=== PATIENT | male | born 1965 | race Caucasian/White ===

== ENCOUNTER 2017-10-31 08:53 | Emergency (ER) | payer SELFPAY ==
[~2017-10-31] VITALS: Ht 180.3 cm; Wt 93.1 kg
[~2017-10-31 08:53] MED LIST: NORCO 5/3251 TABLET PO
[2017-10-31 10:37] LABS: BASOPHIL (%) 0.1 % (0-1); EOSINOPHIL (%) 0 % (0-5); HEMATOCRIT 37.7 % (38.0-50.0); HEMOGLOBIN 13.2 G/DL (12.5-16.6); IMMATURE GRANULOCYTE (%) 1.1 % (0.0-0.7); LYMPHOCYTE (%) 7.1 % (15-42); LYMPHOCYTE COUNT 0.6 K/uL (1.0-2.8); MCH 36.8 PG (29.0-34.0); MONOCYTE (%) 8.8 % (3-12); MONOCYTE COUNT 0.7 K/uL (0-0.8); NEUTROPHIL (%) 82.9 % (45-76); NEUTROPHIL COUNT 6.8 K/uL (1.8-6.4); PLATELET COUNT 65 K/uL (156-360); RBC DIS.WIDTH-SD 54.3 % (39-53); RED BLOOD COUNT 3.59 M/uL (4.00-5.50); WHITE BLOOD COUNT 8.2 K/uL (4.1-10.2)
[2017-10-31 10:51] LABS: ALBUMIN 3.8 g/dL (3.2-4.8); CHLORIDE 103 mEq/L (99-109); POTASSIUM 4.2 mEq/L (3.7-5.4); SODIUM 139 mEq/L (136-147)
[2017-10-31 10:54] LABS: GLUCOSE 115 mg/dL (70-99); TOTAL PROTEIN 6.2 g/dL (6.4-8.3)
[2017-10-31 10:55] LABS: TOTAL BILIRUBIN 1.7 mg/dL (0.0-1.0)
[2017-10-31 10:56] LABS: SERUM ETHYL ALCOHOL < 10 mg/dL
[2017-10-31 10:57] LABS: CREATININE 1.6 mg/dL (0.6-1.3); GFR ESTIMATE (CALCULATED) 49 mL/min/ (58.99-99999)
[2017-10-31 10:58] LABS: ALKALINE PHOSPHATASE 47 IU/L (3-129)
[2017-10-31 10:59] LABS: AST (GOT) 51 IU/L (2-34); DIRECT BILIRUBIN 0.8 mg/dL (0.0-0.3); UREA NITROGEN (BUN) 22 mg/dL (9-23)
[2017-10-31 11:01] LABS: ACETAMINOPHEN (TYLENOL) < 10 mcg/mL (10-30); ALT (GPT) 17 IU/L (3-49); SALICYLATE < 5.0 MG/DL (15-30)
[2017-10-31 11:34] LABS: APPEARANCE CLOUDY ((CLEAR)); BILIRUBIN SMALL; BLOOD NEGATIVE; COLOR AMBER ((YELLOW)); GLUCOSE (STRIP) NEGATIVE; KETONES 5; LEUKOCYTES NEGATIVE; NITRITE NEGATIVE; PROTEIN (STRIP) 100; SPECIFIC GRAVITY 1.024 (1.000-1.030)
[2017-10-31 11:39] LABS: BACTERIA RARE /HPF; EPITHELIAL CELLS RARE /HPF; HYALINE CASTS 40-50 /LPF; MUCUS TRACE /LPF; RED BLOOD CELLS 0-5 /HPF (0-5); WHITE BLOOD CELLS 15-20 /HPF (0-5)
[2017-10-31 11:48] LABS: AMPHETAMINE NEGATIVE (500 ng/mL); BARBITURATES NEGATIVE (200 ng/mL); BENZODIAZEPINES NEGATIVE (150 ng/mL); BUPRENORPHINE NEGATIVE (10 ng/mL); COCAINE NEGATIVE (150 ng/mL); METHADONE NEGATIVE (200 ng/mL); METHAMPHETAMINE NEGATIVE (500 ng/mL); OPIATES (MORPHINE) NEGATIVE (100 ng/mL); OXYCODONE NEGATIVE (100 ng/mL); PHENCYCLIDINE NEGATIVE (25 ng/mL); PROPOXYPHENE NEGATIVE (300 ng/mL); THC CANNABINOIDS NEGATIVE (50 ng/mL); TRICYCLIC ANTIDEPRESSANTS NEGATIVE (300 ng/mL)
[2017-10-31] MEDS ORDERED: ZOFRAN4 MG PO (14:38)
[2017-10-31] MEDS ORDERED: LIBRIUM25 MG PO (14:38)
[2017-10-31] MEDS ORDERED: THIAMINE HCL100 MG PO (14:38)
[2017-10-31 14:55] VITALS: BP 121/61
== END 2017-10-31 15:00 | disposition home or self-care (01) ==
LOC: EME 08:53
PROVIDERS: Emergency Medicine
DX: F10.239 Alcohol dependence with withdrawal, unspecified (principal); N39.0 Urinary tract infection, site not specified; R00.0 Tachycardia, unspecified; R94.31 Abnormal electrocardiogram [ECG] [EKG]; I25.2 Old myocardial infarction; Z87.891 Personal history of nicotine dependence; Z86.73 Personal history of transient ischemic attack (TIA), and cerebral infarction without residual deficits
CPT/HCPCS: 80048; 80076; 81003; 85025; 93005; 99281; 99285; G0480; J2060; J2405; J7030